=== PATIENT | male | born 1990 | race Caucasian/White ===

== ENCOUNTER 2017-06-01 14:02 | Emergency (ER) | payer MEDICAID, OTHER ==
[~2017-06-01] VITALS: Ht 170.2 cm; Wt 68.2 kg
[~2017-06-01 14:02] MED LIST: CEPH500C5 PO; DIPH25TA89 PO; HYDR28CR14 TP; IBUP-1051 PO; NO HOME MEDS; TRIA15CR61 TP; ZOF4T PO
[2017-06-01 14:06] VITALS: BP 116/64
[2017-06-01] MEDS ORDERED: IBUP-1984 PO (14:59)
== END 2017-06-01 15:10 | disposition home or self-care (01) ==
LOC: ER 14:03
DX: R07.89 Other chest pain (principal)
CPT/HCPCS: 99282

== ENCOUNTER 2019-01-25 22:41 | Emergency (ER) | payer BC ==
[~2019-01-25] VITALS: Ht 170.2 cm; Wt 72.0 kg
[~2019-01-25 22:41] MED LIST changes: -CEPH500C5 PO
[2019-01-25 22:43] VITALS: BP 131/73
[2019-01-25] MEDS ORDERED: CLOT15CR73 TP (23:13)
[2019-01-25] MEDS ORDERED: CEPH250T PO (23:13)
== END 2019-01-25 23:21 | disposition home or self-care (01) ==
LOC: ER 22:42
DX: L03.115 Cellulitis of right lower limb (principal); B35.3 Tinea pedis; Z79.2 Long term (current) use of antibiotics; Z79.899 Other long term (current) drug therapy
CPT/HCPCS: 99283